=== PATIENT | male | born 1935 | race Caucasian/White ===

== ENCOUNTER → 2016-08-14 | Outpatient (CLI) | payer BC ==
[~2016-08-14] MED LIST: ALLO300T2 PO; ASPI81TA28 PO; ATOR-26 PO; CRG3125 PO; LISI40TA PO; NITR0.4S UT; OMEG10007 PO
[2016-08-14 13:40] LABS: BASO % 0.6 %; BASO ABS # 0.04 K/uL (0-0.2); COMPLETE YES; EOS % 1.3 %; HEMATOCRIT 37.3 % (42-52); IG% 0.1 %; LYMPH % 32.5 %; LYMPH ABS # 2.17 K/uL (1.2-3.4); MEAN CELL VOLUME 92.8 fL (80-100); MEAN CORPUSCULAR HEMOGLOBIN 31.6 pg (25-34); MEAN PLATELET VOLUME 10.6 fL (7.4-10.4); MONO % 9.6 %; NEUT % 55.9 %; PLATELET COUNT 195 K/uL (130-400); RED BLOOD COUNT 4.02 M/uL (4.7-6.1); WHITE BLOOD COUNT 6.67 K/uL (4.8-10.8)
[2016-08-14 14:09] LABS: BLOOD UREA NITROGEN 29 mg/dl (7-18); BUN/CREATININE RATIO 20.9 (10-20); CALCIUM 9.2 mg/dl (8.5-10.1); CARBON DIOXIDE 26 mmol/L (21-32); CHLORIDE 106 mmol/L (98-107); GLUCOSE 112 mg/dl (70-99); POTASSIUM 4.4 mmol/L (3.5-5.1); SODIUM 140 mmol/L (136-145)
== END | disposition home or self-care (01) ==
LOC: C.LABMFLN 11:10
PROVIDERS: ATTEND Internal Medicine Cardiovascular Disease
DX: D64.9 Anemia, unspecified (principal)

== ENCOUNTER → 2017-02-23 | Outpatient (CLI) | payer BC ==
[2017-02-23 13:33] LABS: BASO % 0.5 %; BASO ABS # 0.03 K/uL (0-0.2); COMPLETE YES; EOS % 2.1 %; HEMATOCRIT 36.7 % (42-52); IG% 0.2 %; LYMPH % 25.3 %; LYMPH ABS # 1.58 K/uL (1.2-3.4); MEAN CELL VOLUME 96.3 fL (80-100); MEAN CORPUSCULAR HEMOGLOBIN 31.8 pg (25-34); MEAN PLATELET VOLUME 10.6 fL (7.4-10.4); MONO % 13.3 %; NEUT % 58.6 %; PLATELET COUNT 182 K/uL (130-400); RED BLOOD COUNT 3.81 M/uL (4.7-6.1); WHITE BLOOD COUNT 6.25 K/uL (4.8-10.8)
[2017-02-23 14:11] LABS: BLOOD UREA NITROGEN 22 mg/dl (7-18); CALCIUM 8.9 mg/dl (8.5-10.1); CARBON DIOXIDE 28 mmol/L (21-32); CHLORIDE 105 mmol/L (98-107); GLUCOSE 109 mg/dl (70-99); POTASSIUM 4.6 mmol/L (3.5-5.1); SODIUM 139 mmol/L (136-145)
== END | disposition home or self-care (01) ==
LOC: C.LABMFLN 09:24
PROVIDERS: ATTEND Internal Medicine Cardiovascular Disease
DX: D64.9 Anemia, unspecified (principal); I10 Essential (primary) hypertension

== ENCOUNTER → 2017-02-26 | Outpatient (CLI) | payer BC ==
[2017-02-26 14:18] LABS: ALT/SGPT 24 U/L (12-78); AST/SGOT 21 U/L (15-37)
== END | disposition home or self-care (01) ==
LOC: C.LABMFLN 10:45
PROVIDERS: ATTEND Internal Medicine Cardiovascular Disease
DX: E78.5 Hyperlipidemia, unspecified (principal)

== ENCOUNTER → 2018-01-06 | Outpatient (CLI) | payer BC ==
[~2018-01-06] MED LIST changes: +REGADENOSON 0.4 MG/5 ML SYR ONE
--- NOTE | 2018-01-06 23:39 | Myocardial Perfusion Study ---
Myocardial Perfusion Study Rpt Myocardial Perfusion Study Rpt Date of Service 01/06/2018 Myocardial Perfusion Study Rpt Procedure: 1. Myocardial perfusion study performed in multiple views/images 2. Lexiscan pharmacologic stress ECG Indications: 1. LBBB 2. CAD 3. Shortness of breath Consent: Informed written consent was obtained prior to the procedure. Ordering physician: Dr. Reece Procedural details: For the stress portion of the study, Lexiscan 0.4 mg was intravenously administered followed by a saline flush. This was followed by 32.4 mCi of technetium 99m Cardiolite, injected at 11:15 a.m. on 01/06/2018. 30 minutes following the injection, imaging of the heart was performed in multiple projections. For the rest portion of the study, 10.8 mCi technetium 99m Cardiolite was injected intravenously at 9:30 a.m. on 01/06/2018. 1 hour following the injection, imaging of the heart was performed in the same projections. Lexiscan stress ECG: Resting ECG demonstrated: Av pacing at 71 bpm Maximum heart rate: 78 bpm Resting blood pressure: 107/65 mmHg Maximum blood pressure: 122/65 mmHg Maximal, age-predicted heart rate: 56 % Significant ST changes: None Arrhythmia: None Symptoms: None Findings: Rotating raw imaging demonstrated no significant lung uptake. There is no significant motion artifact. Heart size appeared enlarged. Myocardial perfusion demonstrated a large area of severely reduced uptake involving the base to apical inferolateral, base to apical inferior, base to apical inferoseptal, base to apical lateral wall segments, which were fixed in post stress and rest imaging with reversibility involving the mid to distal lateral wall. The apex also appeared to have a fixed defect. Ejection fraction: 37 % Wall motion: Akinesis of the apex, and distal inferolateral wall. Otherwise, global hypokinesis. No significant transient ischemic dilation. Impression: 1. Abnormal myocardial perfusion study suggesting large infarct involving the inferolateral, inferior, inferoseptal, lateral, and apical wall segments. There was mid to distal lateral wall reversibility, suggesting ischemia in that territory. 2. Moderately reduced left ventricular systolic function. EF 37%. 3. Apical and distal inferolateral wall akinesis. Otherwise global hypokinesis. 4. No reported symptoms. 5. Indeterminate Lexiscan ECG.
== END | disposition home or self-care (01) ==
LOC: C.NUCL 08:40
PROVIDERS: ATTEND Internal Medicine Cardiovascular Disease
DX: I25.10 Atherosclerotic heart disease of native coronary artery without angina pectoris (principal); R06.02 Shortness of breath